=== PATIENT | male | born 2000 | race Two or more races ===

== ENCOUNTER 2020-11-04 06:20 | Emergency (ER) | payer SELFPAY ==
[~2020-11-04] VITALS: Ht 167.6 cm; Wt 83.9 kg
[2020-11-04] MEDS ORDERED: cefTRIAXone W LIDOCAINE 1 GM IM IM ONE (07:15)
[2020-11-04] MEDS ORDERED: TETANUS-DIPTH-ACEL PERTUSSIS 0.5ML SYR Tdap IM ONE (07:15)
[2020-11-04] MEDS ORDERED: cefTRIAXone SOD 1,000 MG VL ONE (07:20)
[2020-11-04 07:29] VITALS: BP 134/68
[2020-11-04 08:26] LABS: Alcohol, Urine < 3.0 mg/dL (0-10); Amphetamine Screen, Urine NEGATIVE (NEGATIVE); Barbiturate Scree,Urine NEGATIVE (NEGATIVE); Benzodiazephine Screen, Urine NEGATIVE (NEGATIVE); Cannabinoid Screen, Urine POSITIVE (NEGATIVE); Cocaine Screen, Urine NEGATIVE (NEGATIVE); Opiate Scree,Urine NEGATIVE (NEGATIVE); Phencyclidine Screen, Urine NEGATIVE (NEGATIVE)
[2020-11-04] MEDS ORDERED: LIDOCAINE 1% HCL (LOCAL ANESTH.) INJ 20ML MDV ONE (08:59)
== END 2020-11-04 09:11 | disposition home or self-care (01) ==
LOC: ER 06:20
DX: S09.90XA Unspecified injury of head, initial encounter (principal); S01.112A Laceration without foreign body of left eyelid and periocular area, initial encounter; X58.XXXA Exposure to other specified factors, initial encounter; Y93.89 Activity, other specified; Y92.89 Other specified places as the place of occurrence of the external cause; Y99.8 Other external cause status
CPT/HCPCS: 12014; 70450; 70486; 80307; 90471; 90715; 96372; 99285; J0696; J2001